=== PATIENT | male | born 2000 | race Hispanic/Latino ===

== ENCOUNTER 2021-12-23 23:27 | Emergency (ER) | payer OTHER ==
[~2021-12-23] VITALS: Ht 157.5 cm; Wt 88.5 kg
[2021-12-24 00:53] VITALS: BP 120/84
[2021-12-24] MEDS ORDERED: ACET1TAB25 PO (01:24)
[2021-12-24] MEDS ORDERED: HYDROCODONE/ACETAMINOPHEN 10/325 MG TAB PO ONE (01:30)
== END 2021-12-24 01:36 | disposition home or self-care (01) ==
LOC: EDH 23:27
DX: S02.31XA Fracture of orbital floor, right side, initial encounter for closed fracture (principal); S01.111A Laceration without foreign body of right eyelid and periocular area, initial encounter; Y04.8XXA Assault by other bodily force, initial encounter; Y93.89 Activity, other specified; Y92.89 Other specified places as the place of occurrence of the external cause; Y99.8 Other external cause status
CPT/HCPCS: 70450; 70486